=== PATIENT | male | born 1990 | race Caucasian/White ===

== ENCOUNTER 2018-06-06 23:19 | Emergency (ER) | payer OTHER ==
[2018-06-06] MEDS ORDERED: TDAP ADULT 0.5 ML INJ (BOOSTRIX) IM ONE (23:33)
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
[2018-06-06] MEDS ORDERED: LET GEL TOPICAL 1 EA SYR TP ONE (23:45)
[2018-06-07 00:32] VITALS: BP 120/71
== END 2018-06-07 00:31 | disposition home or self-care (01) ==
PROC: 08QNXZZ Repair Right Upper Eyelid, External Approach (ICD-10-PCS; principal; 2018-06-06)
DX: S01.111A Laceration without foreign body of right eyelid and periocular area, initial encounter (principal); W22.8XXA Striking against or struck by other objects, initial encounter; Y92.9 Unspecified place or not applicable; Y93.9 Activity, unspecified; Y99.9 Unspecified external cause status